=== PATIENT | male | born 1965 | race Caucasian/White ===

== ENCOUNTER 2019-02-08 21:05 | Inpatient (IN) | payer MEDICAID ==
[~2019-02-08] VITALS: Ht 175.3 cm; Wt 61.0 kg
[~2019-02-08 21:05] MED LIST: CIPRO500 MG OR; CLONIDINE0.1 MG PO; CLONIDINE0.2 MG OR; DENIES CURRENT MEDS; LISINOP/HCTZ1 TA1 OR; LORTAB 5 OR; LORTAB5 OR; NO MEDS; ROBITUSSI8 OR; VENTOLIN HFA IN; ZPAK OR
[2019-02-08 21:50] LABS: URINE BLOOD DIPSTICK LARGE (NEGATIVE); URINE CLARITY CLOUDY; URINE COLOR YELLOW; URINE GLUCOSE - DIPSTICK NEGATIVE (NEGATIVE); URINE KETONE NEGATIVE (NEGATIVE); URINE LEUK ESTERASE SMALL (Negative); URINE NITRITE - DIPSTICK NEGATIVE (Negative); URINE PROTEIN - DIPSTICK 100 mg/dL (NEG-TRACE); URINE SPECIFIC GRAVITY >=1.030; URINE UROBILINOGEN - DIPSTICK 0.2 E.U./dL (0.2)
[2019-02-08 21:51] LABS: HEMATOCRIT 33.1 % (39.0-50.0); HEMOGLOBIN 10.5 g/dl (14.0-18.0); IMMATURE GRANULOCYTES 1.8 % (0.0-5.0); MEAN CELL VOLUME 91.7 fL CALC (80.0-100.0); MEAN CORPUSCULAR HGB 29.1 pG CALC (26.0-32.0); MEAN CORPUSCULAR HGB CONC 31.7 g/L CALC (32.0-36.0); NEUT# 8.95 thou/uL (1.82-7.42); RED BLOOD COUNT 3.61 mill/uL (4.70-6.10); RED CELL DISTRI WIDTH 15.9 % (11.5-15.5)
[2019-02-08 21:52] LABS: URINE BILIRUBIN - DIPSTICK NEGATIVE (NEGATIVE)
[2019-02-08 21:58] LABS: URINE RBC 25-50 RBC/hpf (0-5); URINE WBC >100 WBC/hpf (0-5)
[2019-02-08 22:02] LABS: ALBUMIN 4.4 g/dL (3.2-5.0); CREATININE 4.5 mg/dL (0.7-1.3); POTASSIUM 4.1 mmol/l (3.5-5.1); TOTAL PROTEIN 7.2 g/dL (6.3-8.2)
[2019-02-08] MEDS ORDERED: NORVASC5 M1 PO (23:08)
[2019-02-08] MEDS ORDERED: LIPITOR20 MG PO (23:24)
[2019-02-08] MEDS ORDERED: NIZORAL2 % EX (23:25)
[2019-02-08] MEDS ORDERED: MULTIVITAMI1 PO (23:26)
[2019-02-08] MEDS ORDERED: COREG25 MG PO (23:26)
[2019-02-08] MEDS ORDERED: LISINOPRIL40 MG PO (23:26)
[2019-02-08] MEDS ORDERED: VALIUM5 MG PO (23:39)
[2019-02-08] MEDS ORDERED: PEPCID20 MG PO (23:40)
[2019-02-08] MEDS ORDERED: BACLOFEN10 MG PO (23:40)
[2019-02-08] MEDS ORDERED: NORCO1 TA1 PO (23:41)
[2019-02-09] VITALS (19 sets, daily range): BP systolic 92–152; BP diastolic 54–93
--- NOTE | 2019-02-09 00:40 | NUR ---
orders rec'd per killian from dr carrillo.
--- NOTE | 2019-02-09 02:02 | NUR ---
PT TO CT VIA STRETCHER. PT REMAINS FIGITY. CONTINUES TO SHAKE HEAD AND FLING RIGHT ARM UP. PT MOVED TO CT TABLE. VSS. PT GIVEN VERSED IVP.
--- NOTE | 2019-02-09 02:18 | NUR ---
REPORT TO [facility]/NURSE ICU
--- NOTE | 2019-02-09 02:18 | NUR ---
PT RETURNED TO ER...WHILE REPORT CALLED. RESP EASY REG. PT RESPONDING. ABLE TO SPEAK SOME WORKS. NOT ORIENTED ENOUGH TO ANSWER QUESTIONS
--- NOTE | 2019-02-09 02:22 | NUR ---
URINE OUTPUT 300 CC IN URINAL
--- NOTE | 2019-02-09 02:22 | NUR ---
DURNING COURSE OF STAY...PT WENT FROM BEING NON-VERBAL TO SAYING A FEW WORDS. OPENING EYES AT TIMES. CONTINUES TO HAVE SPORATIC MOVMENTS OF RIGHT ARM.
--- NOTE | 2019-02-09 02:22 | NUR ---
TO FLOOR VIA STRETCHER/PORTABLE MONITOR
--- NOTE | 2019-02-09 02:30 | NUR ---
53 yr old old appearing male admitted icu2 per stretcher from er. transferred x3 to bed. bed weight obtained. o2 cont per nc. assistant terminal manager shows sinus rhythm. #20 lt hand. ivf began as ordered. #18 rfa saline lock. jerry cath in place. urine cloudy yellow. speech garbled. history obtained per er record. oriented to room. fall precautions initiated.
--- NOTE | 2019-02-09 02:50 | NUR ---
TO XRAY FOR CHEST FILM.
--- NOTE | 2019-02-09 04:30 | NUR ---
lab here. blood drawn.
[2019-02-09 05:25] LABS: HEMATOCRIT 28.6 % (39.0-50.0); HEMOGLOBIN 8.8 g/dl (14.0-18.0); IMMATURE GRANULOCYTES 0.4 % (0.0-5.0); MEAN CELL VOLUME 94.1 fL CALC (80.0-100.0); MEAN CORPUSCULAR HGB 28.9 pG CALC (26.0-32.0); MEAN CORPUSCULAR HGB CONC 30.8 g/L CALC (32.0-36.0); NEUT# 6.84 thou/uL (1.82-7.42); RED BLOOD COUNT 3.04 mill/uL (4.70-6.10); RED CELL DISTRI WIDTH 15.9 % (11.5-15.5)
[2019-02-09 06:43] LABS: POTASSIUM 4.2 mmol/l (3.5-5.1)
[2019-02-09 06:47] LABS: CREATININE 2.9 mg/dL (0.7-1.3)
--- NOTE | 2019-02-09 07:05 | NUR ---
pt awake in bed; no apparent distress noted; assessment completed at this time; pt alert to name only; pt does not converse with this radio news writer; pt only says "QUIT"; no s/sx of pain noted; no n/v noted; resp unlabored/ tachypneic; lungs coarse; skin color wnl; o2 per nc at 2L; moist loose cough noted; pt orally suctioned for copious secretions; hr reg; strong pulses; no edema noted; bilat knee high deanna hose intact; st on monitor; abd soft with bas present; no bm noted per radio news writer; jerry to gravity draining cloudy/sediment yellow urine; cath strap intact; #18 saline locked to rfa; #20 to lh patent with ivf infusing without complication; redness noted to knuckles of left hand; pt appears contracted but extremities are able to be extended per this radio news writer; repositioned; will continue to monitor closely
--- NOTE | 2019-02-09 08:05 | NUR ---
resting in bed; no apparent distress noted; st on monitor; iv intact and patent; fluids infusing without complication; jerry to gravity; will continue to monitor
--- NOTE | 2019-02-09 09:45 | NUR ---
Dr Shipley present at bedside to assess pt and discuss plan of care
--- NOTE | 2019-02-09 10:04 | NUR ---
resting with eyes closed; no apparent distress noted; suction at bedside; iv patent; fluids infusing without complication; no redness or edema noted at site; sr 120s on monitor; jerry to gravity; will continue to monitor
--- NOTE | 2019-02-09 11:18 | NUR ---
S: NAVIN SANCHEZ is a 53 M who presents with pneumonia and sepsis. He has a history of malignant hypertension. All medications in patient's chart were reviewed. O: VS: BP <122/76 mmHg>, P<105>, RR<32>,T<97.8> W <61kg>, HT<175.3cm>, Scr=<2.9>,CrCl= <25.6ml/min> A: Blood culture is still pending. P: Patient is on Zosyn 2.25 g IV Q8h. Vancomycin ordered for pharmacy to dose. Start Vancomycin 750 mg IV Q24H. Vancomycin trough is drawn before the 4th dose and is due on 02/11/19 at 2330 Vancomycin goal trough is between <15-20 mcg/ml>. Pharmacy will follow and or advise on antibiotics use as needed.
--- NOTE | 2019-02-09 12:06 | NUR ---
awake in bed; no apparent distress noted; iv intact and patent; no redness or edema noted at site; st on monitor; jerry to gravity; o2 per nc; repositioned; call light within reach; will continue to monitor
--- NOTE | 2019-02-09 14:00 | NUR ---
awake in bed; no apparent distress noted; pt voices racial slurs when this program writer and Liza Harris LPN present in room; iv patent; no redness or edema noted at site; st on monitor; jerry to gravity; repositioned; will premedicate for ct scan; will continue to monitor
--- NOTE | 2019-02-09 14:20 | NUR ---
pt transferred to CT scan via stretcher with portable o2 accompanied by staff x2 in stable condition;
--- NOTE | 2019-02-09 14:40 | NUR ---
pt returned to unit via stretcher with portable o2 in stable condition; monitoring attachment connect; pt drowsy; will continue to monitor
--- NOTE | 2019-02-09 16:20 | NUR ---
resting in bed with eyes closed; no apparent distress noted; resp even and unlabored; iv patent; fluid infusing without complication; no redness or edema noted at site; st on monitor; jerry to gravity; call light within reach; will continue to monitor
--- NOTE | 2019-02-09 17:59 | NUR ---
awake in bed; no apparent distress noted; resp even and unlabored; st on monitor; jerry to gravity; o2 per nc; iv patent; fluids infusing without complication; no redness or edema noted at site; call light within reach
--- NOTE | 2019-02-09 19:45 | NUR ---
awakens easily. drowsy. denies distress. o2 cont per nc. coarse breath sounds bilat. cardiac technician shows sinus tach. #20 saline lock lt hand. #18 rfa ns infusing @ 100cchr. remains npo. jrery cath in place. urine yellow & very cloudy. turned & repositioned. requires toatal care for all needs. fall precautions cont.
--- NOTE | 2019-02-09 21:10 | NUR ---
orders rec'd per dr carrillo.
--- NOTE | 2019-02-09 21:10 | NUR ---
temp 101.9. dr carrillo notified.
--- NOTE | 2019-02-09 21:30 | NUR ---
tylenol 650mg supp given for temp. ice bags to bilat arm pits & groin applied.
--- NOTE | 2019-02-09 22:45 | NUR ---
temp 99.9. ice bags removed.
[2019-02-10] VITALS (15 sets, daily range): BP systolic 118–139; BP diastolic 73–91
--- NOTE | 2019-02-10 00:01 | NUR ---
awake. calling out for roseanna(girlfriend). no distress. o2 cont.
--- NOTE | 2019-02-10 02:00 | NUR ---
cont to yell out frequently for roseanna. attempted to orient without success.
--- NOTE | 2019-02-10 04:00 | NUR ---
am care given x2 staff. lexi well.
--- NOTE | 2019-02-10 04:30 | NUR ---
lab here. blood drawn.
[2019-02-10 05:32] LABS: HEMATOCRIT 28.4 % (39.0-50.0); HEMOGLOBIN 8.7 g/dl (14.0-18.0); IMMATURE GRANULOCYTES 0.6 % (0.0-5.0); MEAN CELL VOLUME 94.4 fL CALC (80.0-100.0); MEAN CORPUSCULAR HGB 28.9 pG CALC (26.0-32.0); MEAN CORPUSCULAR HGB CONC 30.6 g/L CALC (32.0-36.0); NEUT# 6.32 thou/uL (1.82-7.42); RED BLOOD COUNT 3.01 mill/uL (4.70-6.10); RED CELL DISTRI WIDTH 15.8 % (11.5-15.5)
[2019-02-10 05:53] LABS: ALKALINE PHOSPHATASE 96 u/l (38-126); AMYLASE 42 u/l (30-110); ANION GAP 16 (6-22 (CALC)); BILIRUBIN, TOTAL 0.8 mg/dL (0.0-1.4); BUN 25 mg/dL (9-20); CARBON DIOXIDE 19 mmol/l (22-30); CHLORIDE 120 mmol/l (95-108); LIPASE 60 u/l (23-300); MAGNESIUM 1.3 mg/dL (1.6-2.3); POTASSIUM 3.8 mmol/l (3.5-5.1); SGOT/AST 24 u/l (17-59); SODIUM 151 mmol/l (137-146)
--- NOTE | 2019-02-10 05:56 | NUR ---
awake. picsell news turned on for pts entertainment.
[2019-02-10 06:03] LABS: ALBUMIN 3.2 g/dL (3.2-5.0); BUN/CREATININE RATIO 21 (12-20 (CALC)); CREATININE 1.2 mg/dL (0.7-1.3); GFR > 60 ML/MIN (>=60 (CALC)); GFR FOR AFR.AMER. > 60 ML/MIN (>=60 (CALC)); TOTAL PROTEIN 5.4 g/dL (6.3-8.2)
--- NOTE | 2019-02-10 06:45 | NUR ---
RECVD REPORT FROM AMAURY MULLEN @START OF SHIFT. PT HEARD CALLING OUT FROM ROOM. PT "DOESNT KNOW WHY".
--- NOTE | 2019-02-10 07:30 | NUR ---
PT FOUND WITH NC ON FOREHEAD, PLACED BACK IN NOSE. EXPLAINED PT NEEDS O2.
--- NOTE | 2019-02-10 10:47 | NUR ---
SPEECH THERAPY @BEDSIDE FOR SWALLOW EVAL.
--- NOTE | 2019-02-10 11:30 | NUR ---
MADE CALL FOR PT ON UNITS PORTABLE PHONE.
--- NOTE | 2019-02-10 12:11 | NUR ---
Patient is a 53 year old male admitted via ER with altered mental status x 3 days and leukocytosis with right lower lobe infiltrates. Medical history includes CVA with residual paresis. HVAC PROJECT MANAGER received order for dysphagia evaluation secondary to pneumonia diagnosis. Upon entering patient's room, patient was in bed at approximately 30 degree angle. Patient oriented to self, current month and year. Continued to believe he was in his room at the [facility] where he resides. Requested apple juice and complained of dry mouth. Oral mechanism examination revealed patient to have natural teeth, in poor condition with multiple molars missing. Lingual ROM diminished with marked weakness on the left side. Labial and lingual loss of sensation noted. Patient respiration crackles and does not improve with throat clearing and swallow. Cough weak. Patient given small sips of water with delayed swallow noted. Patient given small sips of apple juice which he complained was sour. Again, delayed swallow. Patient give 1/3 tsp of applesauce which he held in his mouth without swallowing and cleared after multiple verbal prompts to repeat swallow. Patient complained he is given thickened liquids and he can't swallow them, only thin ones. Though explained, patient continued to believe applesauce was thickened apple juice. This patient currently presents with poor secretion management, aspiration pneumonia and weakened lingual and labial musculature. Delayed swallow reflex and weak cough. It is recommended he remain NPO. He has a high risk for choking. Patient stated his girlfriend is bringing him candy from the [facility]. Consumption is contraindicated. Thank you for this referral. Genny James M.A., [facility]-HVAC PROJECT MANAGER
--- NOTE | 2019-02-10 14:30 | NUR ---
MADE CALL FOR PT ON UNITS PORTABLE PHONE.
--- NOTE | 2019-02-10 16:07 | NUR ---
MADE CALL FOR PT ON UNITS PORTABLE PHONE.
--- NOTE | 2019-02-10 17:31 | NUR ---
GIRLFRIEND @BEDSIDE WITH PT. UPDATED BOTH ON PTS STATUS/TEST RESULTS. CALLBELL W/IN REACH
--- NOTE | 2019-02-10 19:00 | NUR ---
awake. more alert. oriented to name & place. overall appearance in much better tonite. o2 cont per nc. production boring machine operator shows sinus rhythm. #20 lt hand rl infusing @ 75cchr. remains npo although does ask for water. jerry cath in place. urine cloudy yellow. requires total care for all needs. fall precautions cont.
--- NOTE | 2019-02-10 22:00 | NUR ---
eyes closed. no distress. front desk monitor shows sinus rhythm.
[2019-02-11] VITALS (12 sets, daily range): BP systolic 117–144; BP diastolic 77–94
--- NOTE | 2019-02-11 00:01 | NUR ---
eyes closed. no apparent distress. o2 cont.
--- NOTE | 2019-02-11 02:00 | NUR ---
resting quietly. resps even & unlabored. no apparent distress.
--- NOTE | 2019-02-11 04:30 | NUR ---
lab here. blood drawn.
[2019-02-11 04:56] LABS: HEMATOCRIT 27.8 % (39.0-50.0); HEMOGLOBIN 8.6 g/dl (14.0-18.0); IMMATURE GRANULOCYTES 0.7 % (0.0-5.0); MEAN CELL VOLUME 94.6 fL CALC (80.0-100.0); MEAN CORPUSCULAR HGB 29.3 pG CALC (26.0-32.0); MEAN CORPUSCULAR HGB CONC 30.9 g/L CALC (32.0-36.0); NEUT# 4.21 thou/uL (1.82-7.42); RED BLOOD COUNT 2.94 mill/uL (4.70-6.10); RED CELL DISTRI WIDTH 15.8 % (11.5-15.5)
[2019-02-11 05:18] LABS: ALKALINE PHOSPHATASE 79 u/l (38-126); ANION GAP 16 (6-22 (CALC)); BILIRUBIN, TOTAL 0.9 mg/dL (0.0-1.4); BUN 17 mg/dL (9-20); BUN/CREATININE RATIO 19 (12-20 (CALC)); CARBON DIOXIDE 21 mmol/l (22-30); CHLORIDE 119 mmol/l (95-108); CREATININE 0.9 mg/dL (0.7-1.3); GFR > 60 ML/MIN (>=60 (CALC)); GFR FOR AFR.AMER. > 60 ML/MIN (>=60 (CALC)); MAGNESIUM 1.6 mg/dL (1.6-2.3); POTASSIUM 3.6 mmol/l (3.5-5.1); SGOT/AST 24 u/l (17-59); SODIUM 151 mmol/l (137-146); TOTAL PROTEIN 5.2 g/dL (6.3-8.2)
--- NOTE | 2019-02-11 06:00 | NUR ---
eyes closed. no resp diff. o2 cont.
--- NOTE | 2019-02-11 07:13 | NUR ---
PT UNCOOPERATIVE WITH MORNING ASSESSMENT. STATES HES IN TOO MUCH PAIN THIS MORNING. WHEN ASKED ABOUT PAIN, PT ONLY STATES HE HAD A STROKE & CANT FEEL ANYTHING ON RIGHT SIDE OF BODY. PT ABLE TO MOVE ALL LIMBS BUT REFUSING. PT REFUSING TO SQUEEZE HANDS.
--- NOTE | 2019-02-11 07:31 | NUR ---
CALLED BACK INTO ROOM BY PT STATING HES "READY FOR ME NOW". PT HAS WEAK ORACLE IDENTITY MANAGEMENT CONSULTANT IN RIGHT HAND, UNABLE TO ORACLE IDENTITY MANAGEMENT CONSULTANT WITH LEFT HAND. FULL EXTENSION OF RIGHT ARM, UNABLE TO EXTEND LEFT ARM. DRIFT TO BOTH LEGS & ABLE TO PRESS FEET DOWN/UP BUT PT STATES THEY DONT WORK. PT DISAGREEABLE TO TURNING Q2H. CATH NAVARRO INTACT, DRAINING BELOW BED. SKIN PALE/WARM/DRY. EYES REACTIVE/EQUAL. SPEECH NORMAL FOR PT PER GIRLFRIEND YESTERDAY. PT A&Ox4. PT REMINDED NPO. O2 PLACED BACK ON PT. CALLBELL IN HAND, WATCHING TV. PT MEDICATED FOR PAIN.
--- NOTE | 2019-02-11 09:24 | NUR ---
SITTING IN ROOM WITH PT. PT ALREADY MEDICATED FOR ANXIETY. PT CONTINUES TO TRY TO CLIMB OUT OF BED.
--- NOTE | 2019-02-11 10:01 | NUR ---
RN @BEDSIDE FOR COMPLETE BATH.
--- NOTE | 2019-02-11 10:08 | NUR ---
DR SCHNEIDER @BEDSIDE WITH PT, ASSESSING & DISCUSSING POC. PT WILL BE DOWNGRADED TO [facility] AND SHOULD CONSIDER PEG TUBE PLACEMENT.
--- NOTE | 2019-02-11 10:55 | NUR ---
VIF CHANGED. PT ASKED FOR THE PORTABLE PHONE TO CALL HIS GIRLFRIEND.
--- NOTE | 2019-02-11 12:10 | NUR ---
DR HIRSCH @BEDSIDE DISCUSSING PLANS FOR PEG TUBE PLACEMENT. PT AGREES. SURGERY EST FOR TOMORROW AROUND NOON.
--- NOTE | 2019-02-11 12:24 | NUR ---
CALLED TO ROOM. PT REQUEST PORTABLE PHONE AGAIN. EXPLAINED THAT PHONE JUST REMOVED FROM & OTHERS NEED IT & IT NEEDS TO CHARGE. WILL GIVE PHONE BACK IN AWHILE
--- NOTE | 2019-02-11 12:58 | NUR ---
SENIOR ACCOUNTANT CPA ON UNIT. WILL SEND UP 1 CASE OF JEVITY FOR TUBE FEEDINGS TOMORROW.
--- NOTE | 2019-02-11 14:19 | NUR ---
ANETHESIA @BEDSIDE WITH PT.
--- NOTE | 2019-02-11 14:39 | NUR ---
assisted pt in making a phone call to his girlfriend, roseanna
--- NOTE | 2019-02-11 15:33 | NUR ---
pt signed consent for surgery.
--- NOTE | 2019-02-11 16:20 | NUR ---
TRANSFER TO [facility] ON HOLD D/T AMOUNT OF PTS ON THAT UNIT.
--- NOTE | 2019-02-11 16:50 | NUR ---
REPORT GIVEN TO AMAURY BARNETT ON MSU.
--- NOTE | 2019-02-11 17:10 | NUR ---
PT ARRIVED FROM ICU VIA BED, WITH NO DISTRESS NOTED. IV SITE IS FREE FROM REDNESS OR EDEMA. NAVARRO INTACT. NO REDNESS OR EDEMA. CONTINUE TO OBSERVE AND MONITOR.
--- NOTE | 2019-02-11 18:16 | NUR ---
PT INQUIRED ABOUT THE STROKE, WAS PREVIOUS IN OCT. KNOWS ABOUT THE PEG TUBE TOMORROW. CONTINUE TO OBSERVE AND MONITOR.
--- NOTE | 2019-02-11 19:25 | NUR ---
REPORT RECEIVED FROM AMAURY BARNETT. PT RESTING IN BED. ALERT AND ORIENTED. RESPIRATIONS EVEN AND UNLABORED. PT O2 OFF. PT STATES "I CAN'T FIND THE TUBE THAT GOES ON MY FACE" ASSISTED PT WITH REPLACING NC O2 @ 2L. SAFETY PRECAUTIONS IN PLACE. WILL CONTINUE TO MONITOR.
[2019-02-12] VITALS (10 sets, daily range): BP systolic 121–145; BP diastolic 57–86
--- NOTE | 2019-02-12 | NUR ---
PT RESTING IN BED WITH EYES CLOSED. RESPIRATIONS EVEN AND UNLABORED ON O2 @ 2L VIA NC. NO SIGNS OR SYMPOMS OF DISTRESS AT THIS TIME. WILL CONTINUE TO MONITOR.
--- NOTE | 2019-02-12 05:27 | NUR ---
PT RESTING IN BED WATCHING TV. PT STATES HIS PAIN IS A 10 OUT OF 10 PT MEDICATED PER EMAR ORDERS. SAFETY PRECAUTIONS IN PLACE. WILL CONTINUE TO MONITOR.
--- NOTE | 2019-02-12 07:25 | NUR ---
PT REPORT RECIEVED FROM DOMONIQUE ECKERT. PT SLEEPING. NO S/S OF DISTRESS. CALL LIGHT IN REACH. WILL CONTINUE TO MONITOR.
--- NOTE | 2019-02-12 08:13 | NUR ---
PT A/O X3. SPEECH IS CLEAR. NONPRODUCTIVE COUGH NOTED. LT SIDED WEAKNESS DUE TO PREVIOUS STROKE. SOME RT SIDED WEAKNESS WELL TO EXTREMITIES. RESP EVEN AND UNLABORED. LUNG DIMINISHED. O2 @2L ON PT. BOWEL SOUNDS ACTIVE X4. STRONG RADIAL AND PEDAL PULSES. #20 LH D5 1/2 NS @75. SITE APPEARS HEALTHY. NAVARRO INTACT DRAINING CLOUDY YELLOW URINE. PT C/O RT FOOT PAIN. MEDICATION ADMINISTRATION DISCUSSED W/ PT. PT STATES UNDERSTANDING. REPOSITONED FOR COMFORT. PT DENIES ANY FURTHER NEEDS. POC DISCUSSED. SAFETY PRECAUTIONS IN PLACE. CALL LIGHT IN REACH. WILL CONTINUE TO MONITOR.
--- NOTE | 2019-02-12 10:32 | NUR ---
PT TRANSPORTED TO OR VIA STRETCHER ACCOMPIANED BY OR NURSE IN STABLE CONDITION
--- NOTE | 2019-02-12 12:01 | NUR ---
PT TRANSPORTED BACK TO [facility] VIA STRETCHER IN STABLE CONDITION. VS DONE. WILL CONTINUE TO MONITOR.
--- NOTE | 2019-02-12 12:08 | NUR ---
HOLD HEPARIN SC TODAY PER MD
[2019-02-12 12:48] LABS: ANION GAP 12 (6-22 (CALC)); BUN 11 mg/dL (9-20); BUN/CREATININE RATIO 14 (12-20 (CALC)); CARBON DIOXIDE 24 mmol/l (22-30); CHLORIDE 112 mmol/l (95-108); CREATININE 0.8 mg/dL (0.7-1.3); GFR > 60 ML/MIN (>=60 (CALC)); GFR FOR AFR.AMER. > 60 ML/MIN (>=60 (CALC)); POTASSIUM 3.1 mmol/l (3.5-5.1); SODIUM 145 mmol/l (137-146)
--- NOTE | 2019-02-12 16:15 | NUR ---
PT C/O ABDOMINAL PAIN AROUND PEG TUBE PLACEMENT. MEDICATED W/ 1 MG MORPHINE. RELAXATION TECHNIQUES IN PLACE. PT DENIES ANY FURTHER NEEDS. CALL LIGHT IN REACH. WILL CONTINUE TO MONITOR.
--- NOTE | 2019-02-12 19:21 | NUR ---
REPORT RECEIVED FROM AMAURY VALADEZ. PT RESTING IN BED WITH EYES CLOSED. RESPIRATIONS EVEN AND UNLABORED. NAVARRO DRAINING TO GRAVITY. #22 RAC PATENT AND APPEARS HEALTHY. SAFETY PRECAUTIONS IN PLACE. WILL CONTINUET TO MONITOR.
[2019-02-13] VITALS: BP 133/79
--- NOTE | 2019-02-13 | NUR ---
PT RESTING IN BED WITH EYES CLOSED. RESPIRATIONS EVEN AND UNLABORED. NO SIGNS OR SYMPTOMS OF DISTRESS. WILL CONTINUE TO MONITOR.
[2019-02-13 04:00] VITALS: BP 122/84
--- NOTE | 2019-02-13 04:38 | NUR ---
PT RESTING IN BED WITH EYES CLOSED. NO SIGNS OR SYMPTOMS OF DISTRESS AT THIS TIME WILL CONTINUE TO MONITOR.
[2019-02-13 06:04] LABS: HEMOGLOBIN 8.7 g/dl (14.0-18.0); IMMATURE GRANULOCYTES 0.9 % (0.0-5.0); MEAN CELL VOLUME 91.8 fL CALC (80.0-100.0); MEAN CORPUSCULAR HGB 29.6 pG CALC (26.0-32.0); MEAN CORPUSCULAR HGB CONC 32.2 g/L CALC (32.0-36.0); NEUT# 6.37 thou/uL (1.82-7.42); RED BLOOD COUNT 2.94 mill/uL (4.70-6.10); RED CELL DISTRI WIDTH 15.4 % (11.5-15.5)
[2019-02-13 06:34] LABS: ALBUMIN 2.8 g/dL (3.2-5.0); ALKALINE PHOSPHATASE 71 u/l (38-126); ANION GAP 12 (6-22 (CALC)); BILIRUBIN, TOTAL 0.8 mg/dL (0.0-1.4); BUN 9 mg/dL (9-20); BUN/CREATININE RATIO 11 (12-20 (CALC)); CARBON DIOXIDE 24 mmol/l (22-30); CHLORIDE 110 mmol/l (95-108); CREATININE 0.8 mg/dL (0.7-1.3); GFR > 60 ML/MIN (>=60 (CALC)); GFR FOR AFR.AMER. > 60 ML/MIN (>=60 (CALC)); MAGNESIUM 1.2 mg/dL (1.6-2.3); POTASSIUM 3.2 mmol/l (3.5-5.1); SGOT/AST 14 u/l (17-59); SODIUM 143 mmol/l (137-146); TOTAL PROTEIN 5.1 g/dL (6.3-8.2)
[2019-02-13 08:55] VITALS: BP 110/67
--- NOTE | 2019-02-13 08:55 | NUR ---
ASSESSMENT IS COMPLETD: IV SITE IS FREE FROM REDNESS OR EDEMA. HR IS REG,PULSES ARE STRONG X4, ABDIS SOFT WITH ACTIVE BS BREATH SOUNDS ARE CLEAR, BILATERALLY, NAVARRO INTACT DRAINING YELLOW URINE. CONTINUE TO OSERVE AND MONITOR.
--- NOTE | 2019-02-13 12:50 | NUR ---
PT IS RELAXING AND VISITING WITH GIRLFRIEND NO DISTRESS NOTED., IV SITE IS FREE FROM REDNESS OR EDEMA.
[2019-02-13 16:00] VITALS: BP 121/85
--- NOTE | 2019-02-13 16:45 | NUR ---
PT IS RESTING IN BED WITH NO DISTRESS NOED. IV SITE FREE FROM REDNESS OR EDEMA.
[2019-02-13 20:23] VITALS: BP 116/74
--- NOTE | 2019-02-13 20:31 | NUR ---
Patient resting in bed. No complaints. Patient has large bm noted. Breath sounds clear. abdomen soft. Patient has peg tube with no residual noted. no S&S of distress. Will continue to monitor patient. patient left arm is flaccid. Right arm is moving slowly. Frias to BSB draining clear tea urine. Left knee is swollen. Patient repositioned for comfort. Will continue to monitor patient progress.
[2019-02-14 00:36] VITALS: BP 119/81
--- NOTE | 2019-02-14 02:31 | NUR ---
Patient resting in bed. Patient complains of pain, generalized. Patient given 1mg of IV Morphine. Patient tolerated well. Patient repositioned for comfort. Patient continues to have frequent loose stools. Will continue to monitor patient. No change in previous assessment.
[2019-02-14 04:40] VITALS: BP 124/72
[2019-02-14 05:07] LABS: HEMATOCRIT 25.4 % (39.0-50.0); HEMOGLOBIN 8.2 g/dl (14.0-18.0); IMMATURE GRANULOCYTES 1.1 % (0.0-5.0); MEAN CELL VOLUME 90.1 fL CALC (80.0-100.0); MEAN CORPUSCULAR HGB 29.1 pG CALC (26.0-32.0); MEAN CORPUSCULAR HGB CONC 32.3 g/L CALC (32.0-36.0); NEUT# 7.16 thou/uL (1.82-7.42); RED BLOOD COUNT 2.82 mill/uL (4.70-6.10); RED CELL DISTRI WIDTH 15.4 % (11.5-15.5)
[2019-02-14 05:20] LABS: ANION GAP 11 (6-22 (CALC)); BUN 10 mg/dL (9-20); BUN/CREATININE RATIO 13 (12-20 (CALC)); CARBON DIOXIDE 25 mmol/l (22-30); CHLORIDE 106 mmol/l (95-108); CREATININE 0.8 mg/dL (0.7-1.3); GFR > 60 ML/MIN (>=60 (CALC)); GFR FOR AFR.AMER. > 60 ML/MIN (>=60 (CALC)); POTASSIUM 3.6 mmol/l (3.5-5.1); SODIUM 138 mmol/l (137-146)
[2019-02-14 05:22] LABS: MAGNESIUM 2.4 mg/dL (1.6-2.3)
--- NOTE | 2019-02-14 06:08 | NUR ---
Patient resting in bed. Patient is more confused. Asking to go to the dr's office. Patient is having multiple loose bowel movements. Patient does not want any tube feed because he says "I don't want to poop at the dr's office." Frias to bsb. No S&S of distress. Will continue to monitor patient and report any changes to md. Patient cleaned and reoriented.
[2019-02-14 08:05] VITALS: BP 133/79
--- NOTE | 2019-02-14 08:05 | NUR ---
ASSESSMENT IS COMPLETED: IV SITE IS FREE FROM REDNESS OR EDEMA. HR IS REG,PULSES ARE STRONG X4, ABD IS SOFT WITH ACTIVE BS. BREATH SOUNDS ARE CLEAR,BILATERALLY, TELE MONITOR IN PLACE. NAVARRO IS DRAINING YELLOW URINE. PEG TUBE IN PLACE. PT REFUSED AM FEEDING DUE TO BM. CONTINUE TO OSBERVE AND MONITOR.
[2019-02-14] MEDS ORDERED: AUGMENTIN875TAB PO (12:26)
--- NOTE | 2019-02-14 12:50 | NUR ---
PT IS RELAXING IN BED WITH NO DISTRESS NOTED. IV SITE IS FREE FROM REDNESS
--- NOTE | 2019-02-14 14:00 | NUR ---
NAVARRO DISCONTINUED CATHETER INTACT. PT HAD ANOTHER LOOSE STOOL. IV SITE REMAINS INTACT. WANTING IV OUT. EXPLAINED THE NEED TO LEAVE IN UNTIL DECISION IS MADE FOR DISCHARGE.
[2019-02-14 16:00] VITALS: BP 151/95
--- NOTE | 2019-02-14 16:45 | NUR ---
PT REFUSED TO HAVE PEG TUBE FEEDING AT THIS TIME. WILL WAIT UNTIL HE GOES TO [facility]. IV SITE REMAINS INTACT. NAVARRO WAS DISCONTINUED, HAS ALREADY VOIDED SINCE REMOVAL. GAVE TYLENOL FOR GENERALIZED PAIN.
--- NOTE | 2019-02-14 19:36 | NUR ---
GAVE TESSA YOUSSEF REPORT AT [facility]. THEY ARE SENDING A CYLINDER MACHINE OPERATOR OVER TO TRANSPORT PT. IV SITE IS DISCONITNUED CATHETER INTACT. ALL PAPERS ON THE CHART READY FOR TRANSPORT.
[2019-02-14 19:46] VITALS: BP 123/63
--- NOTE | 2019-02-14 19:50 | NUR ---
STAFF FROM R CAME AND TRANSPORT PT WITH PAPERS.
== END 2019-02-14 19:48 | DRG 177 ==
LOC: ED 21:05 → ED-I 23:21 → ED 23:44 → ICU 23:45 → MS2 23:45 → ICU 02-11 11:21 → MS2 02-11 17:30
PROVIDERS: Emergency Medicine; Internal Medicine Nephrology; Nurse Practitioner Family; ADMIT Internal Medicine; ATTEND Internal Medicine
PROC: 0T9B70Z Drainage of Bladder with Drainage Device, Via Natural or Artificial Opening (ICD-10-PCS; 2019-02-08)
PROC: 0DH63UZ Insertion of Feeding Device into Stomach, Percutaneous Approach (ICD-10-PCS; principal; 2019-02-12)
PROC: 0DB98ZX Excision of Duodenum, Via Natural or Artificial Opening Endoscopic, Diagnostic (ICD-10-PCS; 2019-02-12)
PROC: 0DB78ZX Excision of Stomach, Pylorus, Via Natural or Artificial Opening Endoscopic, Diagnostic (ICD-10-PCS; 2019-02-12)
DX: J69.0 Pneumonitis due to inhalation of food and vomit (principal); G93.41 Metabolic encephalopathy; I69.954 Hemiplegia and hemiparesis following unspecified cerebrovascular disease affecting left non-dominant side; E46 Unspecified protein-calorie malnutrition; Z68.1 Body mass index [BMI] 19.9 or less, adult; I69.991 Dysphagia following unspecified cerebrovascular disease; R13.10 Dysphagia, unspecified; I69.928 Other speech and language deficits following unspecified cerebrovascular disease; I69.922 Dysarthria following unspecified cerebrovascular disease; K29.80 Duodenitis without bleeding; K31.7 Polyp of stomach and duodenum; I10 Essential (primary) hypertension; E86.0 Dehydration; K59.00 Constipation, unspecified; F17.200 Nicotine dependence, unspecified, uncomplicated; Z74.01 Bed confinement status
CPT/HCPCS: J2060; J3370; J3475; S0164

== ENCOUNTER 2019-04-09 19:28 | Inpatient (IN) | payer MEDICAID ==
[~2019-04-09] VITALS: Ht 175.3 cm; Wt 56.0 kg
[~2019-04-09 19:28] MED LIST changes: +AUGMENTIN875TAB PO; +BACLOFEN10 MG PO; +COREG25 MG PO; +DIAZEPAM5 MG PO; +DULCOLAX10 MG RE; +LIPITOR20 MG PO; +LISINOPRIL40 MG PO; +MILK OF MAG30 ML/UDC PO; +MIRALAX3350 NF PO; +MULTIVITAMI1 PO; +NIZORAL2 % EX; +NORCO1 TA1 PO; +NORVASC5 M1 PO; +PEPCID20 MG PO; +VALIUM5 MG PO
[2019-04-09 20:19] LABS: IMMATURE GRANULOCYTES 0.6 % (0.0-5.0); MEAN CORPUSCULAR HGB 28.3 pG CALC (26.0-32.0); MEAN CORPUSCULAR HGB CONC 31.5 g/L CALC (32.0-36.0); NEUT# 20.5 thou/uL (1.82-7.42); RED BLOOD COUNT 3.81 mill/uL (4.70-6.10); RED CELL DISTRI WIDTH 15.8 % (11.5-15.5)
[2019-04-09 20:33] LABS: HEMATOCRIT 34.3 % (39.0-50.0); HEMOGLOBIN 10.8 g/dl (14.0-18.0)
[2019-04-09 20:35] LABS: ALBUMIN 4.2 g/dL (3.2-5.0); ALKALINE PHOSPHATASE 123 u/l (38-126); ANION GAP 22 (6-22 (CALC)); BILIRUBIN, TOTAL 0.6 mg/dL (0.0-1.4); BUN 29 mg/dL (9-20); BUN/CREATININE RATIO 39 (12-20 (CALC)); CARBON DIOXIDE 25 mmol/l (22-30); CHLORIDE 96 mmol/l (95-108); CREATININE 0.8 mg/dL (0.7-1.3); GFR > 60 ML/MIN (>=60 (CALC)); GFR FOR AFR.AMER. > 60 ML/MIN (>=60 (CALC)); POTASSIUM 4.3 mmol/l (3.5-5.1); SGOT/AST 27 u/l (17-59); SODIUM 139 mmol/l (137-146); TOTAL PROTEIN 6.6 g/dL (6.3-8.2)
[2019-04-09 23:10] VITALS: BP 118/71
[2019-04-09 23:40] LABS: URINE BILIRUBIN - DIPSTICK NEGATIVE (NEGATIVE); URINE BLOOD DIPSTICK TRACE-LYSED (NEGATIVE); URINE COLOR YELLOW; URINE GLUCOSE - DIPSTICK NEGATIVE (NEGATIVE); URINE KETONE NEGATIVE (NEGATIVE); URINE NITRITE - DIPSTICK NEGATIVE (Negative); URINE PH 7.5 (4.5-8.0); URINE PROTEIN - DIPSTICK NEGATIVE (NEG-TRACE); URINE SPECIFIC GRAVITY <=1.005; URINE UROBILINOGEN - DIPSTICK 0.2 E.U./dL (0.2)
[2019-04-09 23:41] LABS: URINE LEUK ESTERASE SMALL (NEGATIVE)
[2019-04-09 23:54] LABS: URINE AMORPH SEDIMENT MODERATE hpf (NONE-FER); URINE BACTERIA FEW hpf
[2019-04-10 04:39] VITALS: BP 104/70
[2019-04-10 05:44] LABS: HEMATOCRIT 29.2 % (39.0-50.0); IMMATURE GRANULOCYTES 0.7 % (0.0-5.0); MEAN CELL VOLUME 91.3 fL CALC (80.0-100.0); MEAN CORPUSCULAR HGB 28.1 pG CALC (26.0-32.0); MEAN CORPUSCULAR HGB CONC 30.8 g/L CALC (32.0-36.0); NEUT# 18.86 thou/uL (1.82-7.42); RED BLOOD COUNT 3.2 mill/uL (4.70-6.10); RED CELL DISTRI WIDTH 15.6 % (11.5-15.5)
[2019-04-10 06:00] LABS: ALKALINE PHOSPHATASE 104 u/l (38-126); BILIRUBIN, TOTAL 0.4 mg/dL (0.0-1.4); BUN 24 mg/dL (9-20); BUN/CREATININE RATIO 35 (12-20 (CALC)); CARBON DIOXIDE 25 mmol/l (22-30); CREATININE 0.7 mg/dL (0.7-1.3); GFR > 60 ML/MIN (>=60 (CALC)); GFR FOR AFR.AMER. > 60 ML/MIN (>=60 (CALC)); POTASSIUM 4.1 mmol/l (3.5-5.1); SGOT/AST 24 u/l (17-59); SODIUM 139 mmol/l (137-146); TOTAL PROTEIN 5.4 g/dL (6.3-8.2)
[2019-04-10 06:02] LABS: ALBUMIN 3.1 g/dL (3.2-5.0); ANION GAP 9 (6-22 (CALC)); CHLORIDE 109 mmol/l (95-108)
[2019-04-10 07:15] VITALS: BP 103/68
[2019-04-10 16:05] VITALS: BP 143/85
[2019-04-10 19:15] VITALS: BP 158/90
[2019-04-11 04:40] VITALS: BP 128/71
[2019-04-11 04:54] LABS: ANION GAP 10 (6-22 (CALC)); BUN 17 mg/dL (9-20); BUN/CREATININE RATIO 27 (12-20 (CALC)); CARBON DIOXIDE 26 mmol/l (22-30); CHLORIDE 108 mmol/l (95-108); CREATININE 0.6 mg/dL (0.7-1.3); GFR > 60 ML/MIN (>=60 (CALC)); GFR FOR AFR.AMER. > 60 ML/MIN (>=60 (CALC)); MAGNESIUM 1.8 mg/dL (1.6-2.3); POTASSIUM 3.9 mmol/l (3.5-5.1); SODIUM 140 mmol/l (137-146)
[2019-04-11 04:55] LABS: HEMOGLOBIN 8.8 g/dl (14.0-18.0); IMMATURE GRANULOCYTES 0.7 % (0.0-5.0); MEAN CELL VOLUME 91.2 fL CALC (80.0-100.0); MEAN CORPUSCULAR HGB 28.7 pG CALC (26.0-32.0); MEAN CORPUSCULAR HGB CONC 31.4 g/L CALC (32.0-36.0); NEUT# 10.9 thou/uL (1.82-7.42); RED BLOOD COUNT 3.07 mill/uL (4.70-6.10); RED CELL DISTRI WIDTH 15.7 % (11.5-15.5)
[2019-04-11 07:15] VITALS: BP 144/94
[2019-04-11 15:16] LABS: C. DIFFICILE TOXIN A&B NEGATIVE (NEGATIVE)
[2019-04-11 15:38] VITALS: BP 159/90
[2019-04-11 16:11] VITALS: BP 132/96
[2019-04-11 18:54] VITALS: BP 131/88
[2019-04-12 04:25] VITALS: BP 99/67
[2019-04-12 05:15] LABS: HEMATOCRIT 30.2 % (39.0-50.0); HEMOGLOBIN 9.4 g/dl (14.0-18.0); IMMATURE GRANULOCYTES 0.6 % (0.0-5.0); MEAN CELL VOLUME 90.7 fL CALC (80.0-100.0); MEAN CORPUSCULAR HGB 28.2 pG CALC (26.0-32.0); MEAN CORPUSCULAR HGB CONC 31.1 g/L CALC (32.0-36.0); NEUT# 7.15 thou/uL (1.82-7.42); RED BLOOD COUNT 3.33 mill/uL (4.70-6.10); RED CELL DISTRI WIDTH 15.4 % (11.5-15.5)
[2019-04-12 05:42] LABS: ANION GAP 11 (6-22 (CALC)); BUN 15 mg/dL (9-20); BUN/CREATININE RATIO 24 (12-20 (CALC)); CARBON DIOXIDE 27 mmol/l (22-30); CHLORIDE 108 mmol/l (95-108); CREATININE 0.6 mg/dL (0.7-1.3); GFR > 60 ML/MIN (>=60 (CALC)); GFR FOR AFR.AMER. > 60 ML/MIN (>=60 (CALC)); POTASSIUM 4.2 mmol/l (3.5-5.1); SODIUM 141 mmol/l (137-146)
[2019-04-12 08:30] VITALS: BP 129/84
[2019-04-12 16:21] VITALS: BP 148/89
[2019-04-12 20:18] VITALS: BP 145/85
[2019-04-13 04:01] VITALS: BP 133/83
[2019-04-13 05:29] LABS: HEMATOCRIT 30.4 % (39.0-50.0); HEMOGLOBIN 9.4 g/dl (14.0-18.0); IMMATURE GRANULOCYTES 1.4 % (0.0-5.0); MEAN CORPUSCULAR HGB 28.1 pG CALC (26.0-32.0); MEAN CORPUSCULAR HGB CONC 30.9 g/L CALC (32.0-36.0); NEUT# 4.9 thou/uL (1.82-7.42); RED BLOOD COUNT 3.34 mill/uL (4.70-6.10); RED CELL DISTRI WIDTH 15.4 % (11.5-15.5)
[2019-04-13 05:43] LABS: ALBUMIN 3.3 g/dL (3.2-5.0); ALKALINE PHOSPHATASE 100 u/l (38-126); ANION GAP 12 (6-22 (CALC)); BILIRUBIN, TOTAL 0.4 mg/dL (0.0-1.4); BUN 17 mg/dL (9-20); BUN/CREATININE RATIO 24 (12-20 (CALC)); CARBON DIOXIDE 26 mmol/l (22-30); CHLORIDE 107 mmol/l (95-108); CREATININE 0.7 mg/dL (0.7-1.3); GFR > 60 ML/MIN (>=60 (CALC)); GFR FOR AFR.AMER. > 60 ML/MIN (>=60 (CALC)); POTASSIUM 4.5 mmol/l (3.5-5.1); SGOT/AST 18 u/l (17-59); SODIUM 141 mmol/l (137-146); TOTAL PROTEIN 5.7 g/dL (6.3-8.2)
[2019-04-13 08:10] VITALS: BP 130/87
[2019-04-13 15:59] VITALS: BP 137/90
[2019-04-13 19:25] VITALS: BP 169/92
[2019-04-14 04:10] VITALS: BP 144/78
[2019-04-14 07:45] VITALS: BP 136/87
[2019-04-14] MEDS ORDERED: LORTAB5 PO (13:03)
[2019-04-14] MEDS ORDERED: LEVAQUIN750 MG PO (13:04)
[2019-04-14] MEDS ORDERED: DIAZEPAM5 M1 PO (13:04)
== END 2019-04-14 16:44 | DRG 194 ==
LOC: ED 19:28 → ED-I 22:00 → ED 22:22 → MS2 22:23
PROVIDERS: Family Medicine; Internal Medicine Nephrology; Nurse Practitioner Family; ADMIT Internal Medicine; ATTEND Internal Medicine
PROC: 0D20XUZ Change Feeding Device in Upper Intestinal Tract, External Approach (ICD-10-PCS; principal; 2019-04-12)
DX: J18.9 Pneumonia, unspecified organism (principal); I69.954 Hemiplegia and hemiparesis following unspecified cerebrovascular disease affecting left non-dominant side; E46 Unspecified protein-calorie malnutrition; Z68.1 Body mass index [BMI] 19.9 or less, adult; K94.29 Other complications of gastrostomy; I10 Essential (primary) hypertension; I69.991 Dysphagia following unspecified cerebrovascular disease; R13.10 Dysphagia, unspecified; D64.9 Anemia, unspecified; M62.838 Other muscle spasm; K59.00 Constipation, unspecified; M25.50 Pain in unspecified joint; M62.81 Muscle weakness (generalized); R19.7 Diarrhea, unspecified; Y95 Nosocomial condition; Y83.3 Surgical operation with formation of external stoma as the cause of abnormal reaction of the patient, or of later complication, without mention of misadventure at the time of the procedure; Z87.01 Personal history of pneumonia (recurrent); Z87.891 Personal history of nicotine dependence
CPT/HCPCS: J1650; Q9967

== ENCOUNTER 2021-05-10 14:33 | Emergency (ER) | payer MEDICAID ==
[~2021-05-10] VITALS: Ht 175.3 cm; Wt 64.0 kg
[~2021-05-10 14:33] MED LIST changes: +DIAZEPAM5 M1 PO; +LEVAQUIN750 MG PO; +LORTAB5 PO
[2021-05-10 14:53] VITALS: BP 124/79
== END 2021-05-10 16:14 | disposition home or self-care (01) ==
LOC: ED 14:33
DX: Z43.1 Encounter for attention to gastrostomy (principal); I10 Essential (primary) hypertension; F32.9 Major depressive disorder, single episode, unspecified; E78.00 Pure hypercholesterolemia, unspecified; Z86.73 Personal history of transient ischemic attack (TIA), and cerebral infarction without residual deficits

== ENCOUNTER 2021-05-13 22:53 | Emergency (ER) | payer MEDICAID ==
[~2021-05-13] VITALS: Ht 175.3 cm; Wt 70.0 kg
[2021-05-14 02:54] VITALS: BP 116/76
== END 2021-05-14 03:30 ==
LOC: ED 22:53
DX: K94.23 Gastrostomy malfunction (principal); I10 Essential (primary) hypertension; D32.9 Benign neoplasm of meninges, unspecified; E78.00 Pure hypercholesterolemia, unspecified; G81.94 Hemiplegia, unspecified affecting left nondominant side; Z86.73 Personal history of transient ischemic attack (TIA), and cerebral infarction without residual deficits